=== PATIENT | female | born 1955 | race Hispanic/Latino ===

== ENCOUNTER 2023-12-17 08:42 | Emergency (ER) | payer SELFPAY ==
[2023-12-17 08:58] VITALS: BP 158/75; PULSE 64; RESP 16; TEMP 37.1; O2SAT 98
--- NOTE | 2023-12-17 09:28 | ED.GENADULT ---
HPI - General Adult General Chief complaint: Unspecified Stated complaint: pain in stomach,pressure in neck,dizzy,fell yeste Time Seen by Provider: 12/17/23 09:14 Source: patient, family (Daughter is translating per patient request) and RN notes reviewed Mode of arrival: ambulatory Limitations: no limitations History of Present Illness HPI narrative: Patient presents today complaining of a 5 day history of epigastric abdominal pain that is intermittent nature. She is also complaining of some nausea, posterior neck pain, and dizziness that has led to fall. Patient fell when she was dizzy, onto her knees. Dizziness is worse with head movement. No history of vertigo. Denies vomiting, diarrhea, fever. She has been drinking some fluids with electrolytes as well as eating some tortillas, but has not been eating as well as normal. Patient is in from out of town and has been visiting family over the last couple of weeks. Denies any chronic medical problems and is on no medications. Related Data Allergies Allergy/AdvReac Type Severity Reaction Status Date / Time No Known Allergies Allergy Verified 12/17/23 09:32 Review of Systems Review of Systems: CONSTITUTIONAL: Denies body aches, fever, chills, or sweats. EYES: Denies visual changes, redness, or discharge. ENT: Denies rhinorrhea, congestion, sore throat, or otalgia. CARDIOVASCULAR: Denies chest pain, palpitations, or edema. RESPIRATORY: Denies cough or dyspnea. GASTROINTESTINAL: Denies vomiting, or diarrhea.+ nausea, abdominal pain GENITOURINARY: Denies dysuria or hematuria. SKIN: Denies rash, itching, or wounds. MUSCULOSKELETAL: Denies joint pain, or myalgia.+ neck pain NEUROLOGIC: Denies headache, numbness, tingling, or weakness.+ dizziness PSYCH: Denies depression or anxiety. PMFSH Comments At time of signature, I have reviewed and agree with nursing past medical, surgical, social and family history unless otherwise noted. Please see nursing chart for further information. There is no relevant family history pertinent to the presenting complaint Exam Narrative: GENERAL: Well-appearing, well-nourished, and in no acute distress. HEAD: Normocephalic, atraumatic. EYES: EOMI of right eye. Left eye: cornea is chronically milky. No nystagmus of right eye. ENT: Mucous membranes pink and moist. Nares clear. No rhinorrhea. NECK: Normal AROM. Tenderness to posterior paraspinal muscles bilaterally. CHEST: No respiratory distress. Clear to auscultation. HEART: Regular rate and rhythm. No murmur appreciated. Normal peripheral pulses. ABDOMEN: Soft, nondistended, normal active bowel sounds. Tenderness to epigastrium without rebound or guarding. EXTREMITIES: Normal range of motion. No edema. SKIN: Warm, dry, no rash. Capillary refill normal. Normal skin turgor. NEURO: No focal deficits. Alert and oriented x3. Gait steady. PSYCH: Normal affect. No signs of depression or anxiety. Course Course Level of Care: Express Care Visit Vital Signs Vital signs: Vital Signs Temperature 98.7 F 12/17/23 08:58 Pulse Rate 64 12/17/23 08:58 Respiratory Rate 16 12/17/23 08:58 Blood Pressure 158/75 H 12/17/23 08:58 Pulse Oximetry 98 12/17/23 08:58 Oxygen Delivery Room Air 12/17/23 08:58 Temperature 98.7 F 12/17/23 08:58 Pulse Rate 64 12/17/23 08:58 Respiratory Rate 16 12/17/23 08:58 Blood Pressure 158/75 H 12/17/23 08:58 Pulse Oximetry 98 12/17/23 08:58 Oxygen Delivery Room Air 12/17/23 08:58 Reviewed Medical Decision Making MDM Narrative Medical decision making narrative: Based on patient's symptoms, recommend ER transfer. Patient has declined. Would like to try PPI for her epigastric pain and nausea. Understands if symptoms do not improve, or worsen, she should proceed to the ER for further evaluation. Differential Diagnosis Differential Diagnosis: Vertigo, BPPV, Meniere's disease, gastritis, cholecystitis, GERD Vital Signs
== END 2023-12-17 09:39 | disposition left against medical advice (07) ==
PROVIDERS: Emergency Provider Nurse Practitioner
DX: R10.13 Epigastric pain (principal); R42 Dizziness and giddiness; Z90.711 Acquired absence of uterus with remaining cervical stump
CPT/HCPCS: 99202; G0463